=== PATIENT | female | born 1970 | race Caucasian/White ===

== ENCOUNTER 2018-03-18 06:47 | Inpatient (IN) | payer OTHER ==
[2018-03-18] MEDS ORDERED: DEXAMETHASONE 4 MG/ML 5 ML INJ (07:00)
[2018-03-18] MEDS ORDERED: DESFLURANE 15 MIN (07:00)
[2018-03-18] MEDS ORDERED: METOCLOPRAMIDE 10 MG INJ (07:00)
[2018-03-18] MEDS ORDERED: LIDOCAINE 2% (SDV) 5 ML INJ (07:00)
[2018-03-18] MEDS ORDERED: PROPOFOL 200 MG INJ (07:00)
[2018-03-18] MEDS ORDERED: CEFAZOLIN 1 GM INJ (07:00)
[2018-03-18] MEDS ORDERED: MIDAZOLAM 1 MG/ML 2 ML INJ (08:05)
[2018-03-18] MEDS ORDERED: SUCCINYLCHOLINE CHLORIDE 100 MG/5 ML SYG IV (08:05)
[2018-03-18] MEDS ORDERED: ROCURONIUM 50 MG INJ (08:05)
[2018-03-18] MEDS ORDERED: hydrALAzine 20 MG INJ IV (08:30)
[2018-03-18] MEDS ORDERED: LEVALBUTEROL (NEB) 1.25 MG/0.5 ML AMP HHN (08:30)
[2018-03-18] MEDS ORDERED: DIPHENHYDRAMINE 50 MG INJ IV (08:30)
[2018-03-18] MEDS ORDERED: MEPERIDINE 25 MG INJ IV (08:30)
[2018-03-18] MEDS ORDERED: IPRATROPIUM (NEB) 0.5 MG/2.5 ML AMP HHN (08:30)
[2018-03-18] MEDS ORDERED: LABETALOL HCL 20MG INJ IV (08:30)
[2018-03-18] MEDS ORDERED: ONDANSETRON 4 MG INJ IV (08:30)
[2018-03-18] MEDS ORDERED: HYDROmorphONE 1 MG/5 ML IV SYRINGE IV (08:30)
[2018-03-18] MEDS ORDERED: BUPIVACAINE 0.5%/EPI (SDV) 30 ML INJ (08:41)
[2018-03-18] MEDS: BUPIVACAINE 0.5% (SDV) 30 ML INJ (10:10)
[2018-03-18] MEDS: LIDOCAINE 1% (MPF) 30 ML INJ (10:10)
[2018-03-18] MEDS: THROMBIN 5000 UNIT VIAL (10:10)
[2018-03-18] MEDS: POLYMYXIN/BACITRACIN 1L IRRIG (10:10)
[2018-03-18] MEDS: GELATIN SIZE 100 SPONGE (10:10)
[2018-03-18] MEDS ORDERED: HYDROmorphONE 2 MG/ML SYG (14:17)
[2018-03-18] MEDS ORDERED: NALOXONE (0.4 MG/ML) INJ IV (14:30)
[2018-03-18] MEDS: HYDROCODONE/APAP (10/325) TAB PO ×2 (14:30→20:38)
[2018-03-18] MEDS ORDERED: BISACODYL 10 MG SUPP PR (14:30)
[2018-03-18] MEDS: HYDROmorphONE 1 MG/5 ML IV SYRINGE IV ×3 (15:01→16:12)
[2018-03-18] MEDS: FENTAnyl 50 MCG/ML VIAL IV ×3 (15:21→15:50)
[2018-03-18 16:25] LABS: ADD UMIC YES; UR AMORPHOUS CRYSTAL FEW /HPF (NONE SEEN); UR ASCORBIC ACID NEGATIVE (NEGATIVE); UR BILIRUBIN (Dip) NEGATIVE (NEGATIVE); UR BLOOD (Dip) NEGATIVE (NEGATIVE); UR CLARITY CLOUDY (CLEAR); UR COLOR YELLOW (YELLOW); UR GLUCOSE (Dip) NEGATIVE (NEGATIVE); UR KETONES (Dip) NEGATIVE (NEGATIVE); UR LEUKOCYTE ESTERASE (Dip) NEGATIVE Leu/ul (NEGATIVE); UR MUCUS FEW /HPF (NONE SEEN); UR NITRITE (Dip) NEGATIVE (NEGATIVE); UR RBC 0 /HPF (0-5); UR SPECIFIC GRAVITY (Dip) 1.009 (1.003-1.030); UR TOTAL PROTEIN (Dip) NEGATIVE (NEGATIVE); UR UROBILINOGEN (Dip) NEGATIVE (NEGATIVE); UR WBC 0 /HPF (0-5)
[2018-03-18] MEDS: D5W-0.45 NACL + KCL 20 MEQ 1,000 ML IV (17:43)
[2018-03-18] MEDS: traMADol 50 MG TAB PO ×2 (17:43→22:03)
[2018-03-18] MEDS: HYDROmorphONE 0.5 MG/0.5 ML SYG IV ×3 (18:44→22:51)
[2018-03-18] MEDS: CYCLOBENZAPRINE 10 MG TAB PO (19:21)
[2018-03-18] MEDS: CEFAZOLIN 1 GM/50 ML (PMX) 50 ML IVPB (20:03)
[2018-03-18] MEDS: DOCUSATE SODIUM 100 MG CAP PO (22:03)
[2018-03-19] MEDS: ONDANSETRON 4 MG INJ IV ×2 (01:48→07:39)
[2018-03-19] MEDS: HYDROmorphONE 0.5 MG/0.5 ML SYG IV ×5 (01:52→09:58)
[2018-03-19] MEDS: HYDROCODONE/APAP (10/325) TAB PO ×4 (02:50→20:30)
[2018-03-19] MEDS: CEFAZOLIN 1 GM/50 ML (PMX) 50 ML IVPB ×2 (02:53→09:56)
[2018-03-19] MEDS: traMADol 50 MG TAB PO ×6 (04:00→23:36)
[2018-03-19] MEDS: D5W-0.45 NACL + KCL 20 MEQ 1,000 ML IV (04:03)
[2018-03-19] MEDS: PANTOPRAZOLE 40 MG INJ IV (06:48)
[2018-03-19] MEDS: DOCUSATE SODIUM 100 MG CAP PO ×2 (09:56→22:08)
[2018-03-19] MEDS: CYCLOBENZAPRINE 10 MG TAB PO ×4 (10:50→22:08)
[2018-03-19] MEDS: HYDROmorphONE 0.2 MG/ML PCA IV ×2 (11:22→17:19)
[2018-03-19] MEDS: OXYCODONE/ACETAMINOPHEN (5/325) TAB PO (18:40)
[2018-03-19] MEDS ORDERED: OXYCODONE/ACETAMINOPHEN (5/325) TAB PO (21:00)
[2018-03-19] MEDS: AMITRIPTYLINE 50 MG TAB PO (22:08)
[2018-03-20] MEDS: HYDROmorphONE 0.2 MG/ML PCA IV (01:39)
[2018-03-20] MEDS: HYDROCODONE/APAP (10/325) TAB PO ×3 (02:30→14:21)
[2018-03-20] MEDS: traMADol 50 MG TAB PO ×5 (03:07→18:34)
[2018-03-20] MEDS: PANTOPRAZOLE 40 MG INJ IV (06:48)
[2018-03-20] MEDS: DOCUSATE SODIUM 100 MG CAP PO (08:17)
[2018-03-20] MEDS: LOSARTAN 50 MG TAB PO (08:18)
[2018-03-20] MEDS: CYCLOBENZAPRINE 10 MG TAB PO ×2 (08:19→13:22)
[2018-03-20] MEDS: CALCIUM/VITAMIN D (500/200) TAB PO (08:19)
[2018-03-20] MEDS: HYDROCHLOROTHIAZIDE 25 MG TAB PO (08:19)
== END 2018-03-20 21:00 | disposition home or self-care (01) | DRG 455 ==
LOC: REC 06:47 → MS1 17:14
PROC: 0SG30AJ Fusion of Lumbosacral Joint with Interbody Fusion Device, Posterior Approach, Anterior Column, Open Approach (ICD-10-PCS; principal; 2018-03-18 09:00)
PROC: 0SG3071 Fusion of Lumbosacral Joint with Autologous Tissue Substitute, Posterior Approach, Posterior Column, Open Approach (ICD-10-PCS; 2018-03-18 09:00)
PROC: 0SB40ZZ Excision of Lumbosacral Disc, Open Approach (ICD-10-PCS; 2018-03-18 09:00)
PROC: 07DS3ZZ Extraction of Vertebral Bone Marrow, Percutaneous Approach (ICD-10-PCS; 2018-03-18 09:00)
PROC: 4A11X4G Monitoring of Peripheral Nervous Electrical Activity, Intraoperative, External Approach (ICD-10-PCS; 2018-03-18 09:00)
DX: M43.17 Spondylolisthesis, lumbosacral region (principal); M51.27 Other intervertebral disc displacement, lumbosacral region; M48.07 Spinal stenosis, lumbosacral region; I10 Essential (primary) hypertension
CPT/HCPCS: 72114; 81001; 87086; 97116; 97162; 97530

== ENCOUNTER 2018-04-03 05:48 | Day surgery (SDC) | payer OTHER ==
[2018-04-03] MEDS ORDERED: OXYCODONE/ACETAMINOPHEN (5/325) TAB PO (07:00)
[2018-04-03] MEDS ORDERED: MEPERIDINE 25 MG INJ IV (07:00)
[2018-04-03] MEDS ORDERED: FENTAnyl 50 MCG/ML VIAL IV ×2 (07:00)
[2018-04-03] MEDS ORDERED: DIPHENHYDRAMINE 50 MG INJ IV (07:00)
[2018-04-03] MEDS ORDERED: ALBUTEROL 0.083% (NEB) 2.5 MG/3 ML AMP HHN (07:00)
[2018-04-03] MEDS ORDERED: morphine (1 MG/ML) 10ML SYRINGE IV (07:00)
[2018-04-03] MEDS ORDERED: HYDROmorphONE 1 MG/5 ML IV SYRINGE IV (07:00)
[2018-04-03] MEDS ORDERED: LABETALOL HCL 20MG INJ IV (07:00)
[2018-04-03] MEDS ORDERED: LIDOCAINE 2% (MDV) 20 ML INJ (07:08)
[2018-04-03] MEDS ORDERED: DEXAMETHASONE 4 MG/ML 1 ML INJ (07:08)
[2018-04-03] MEDS ORDERED: POLYMYXIN/BACITRACIN 1L IRRIG (07:10)
[2018-04-03 07:20] LABS: ADD MAN DIFF? NO
[2018-04-03] MEDS ORDERED: CEFAZOLIN 1 GM INJ (07:23)
[2018-04-03] MEDS ORDERED: MIDAZOLAM 1 MG/ML 2 ML INJ (07:23)
[2018-04-03] MEDS ORDERED: PROPOFOL 40 ML (07:23)
[2018-04-03] MEDS ORDERED: LIDOCAINE 2% (SDV) 5 ML INJ (07:23)
[2018-04-03] MEDS ORDERED: ONDANSETRON 4 MG INJ (07:23)
[2018-04-03] MEDS ORDERED: FENTAnyl 50 MCG/ML VIAL (07:23)
[2018-04-03 07:24] LABS: INR 1.01; PROTIME 13.4 Sec (11.9-14.9)
[2018-04-03] MEDS ORDERED: FAMOTIDINE 20 MG INJ (07:24)
[2018-04-03 07:25] LABS: BASOPHILS % 0.7 % (0.0-2.0); EOSINOPHILS # 0.3 10^3/ul (0.0-0.5); EOSINOPHILS % 5.4 % (0.0-7.0); HEMATOCRIT 33.9 % (37.0-47.0); HEMOGLOBIN 11.1 g/dl (12.0-16.0); LYMPHOCYTES # 1.5 10^3/ul (0.8-2.9); LYMPHOCYTES % 27.5 % (15.0-51.0); MEAN CORPUSCULAR HEMOGLOBIN 26.9 pg (29.0-33.0); MEAN CORPUSCULAR HGB CONC 32.7 g/dl (32.0-37.0); MEAN CORPUSCULAR VOLUME 82.1 fl (82.0-101.0); MEAN PLATELET VOLUME 8.3 fl (7.4-10.4); MONOCYTE # 0.3 10^3/ul (0.3-0.9); MONOCYTES % 4.7 % (0.0-11.0); NEUTROPHIL # 3.4 10^3/ul (1.6-7.5); NEUTROPHILS % 61.2 % (39.0-77.0); PARTIAL THROMBOPLASTIN TIME 33.9 Sec (23.0-35.0); PLATELET COUNT 468 10^3/UL (140-415); RED BLOOD COUNT 4.13 10^6/ul (4.20-5.40); RED CELL DISTRIBUTION WIDTH 13.7 % (11.5-14.5)
[2018-04-03 07:25] LABS: WHITE BLOOD COUNT 5.6 10^3/ul (4.8-10.8)
[2018-04-03] MEDS ORDERED: LACTATED RINGER'S 1,000 ML IV (07:30)
[2018-04-03 07:31] LABS: ALANINE AMINOTRANSFERASE 62 IU/L (13-69); ALBUMIN 4.2 g/dl (3.3-4.9); ALBUMIN/GLOBULIN RATIO 1.23; ALKALINE PHOSPHATASE 206 IU/L (42-121); ANION GAP 11 (5-13); ASPARTATE AMINO TRANSFERASE 38 IU/L (15-46); BLOOD UREA NITROGEN 20 mg/dl (7-20); CARBON DIOXIDE 27 mmol/L (21-31); CHLORIDE 105 mmol/L (97-110); CREATININE 0.66 mg/dl (0.44-1.00); Estimated GFR > 60 mL/min (>60); GLUCOSE 90 mg/dl (70-220); POTASSIUM 4.2 mmol/L (3.5-5.1); SODIUM 143 mmol/L (135-144); TOTAL PROTEIN 7.6 g/dl (6.1-8.1)
[2018-04-03 07:32] LABS: CALCIUM 10.5 mg/dl (8.4-10.2)
[2018-04-03] MEDS ORDERED: METOCLOPRAMIDE 10 MG INJ (08:21)
[2018-04-03] MEDS ORDERED: KETOROLAC 30 MG INJ (08:21)
[2018-04-03] MEDS: BUPIVACAINE 0.5% (SDV) 30 ML INJ (08:50)
[2018-04-03] MEDS: ONDANSETRON 4 MG INJ IV (09:01)
[2018-04-03] MEDS: HYDROmorphONE 1 MG/5 ML IV SYRINGE IV ×2 (09:02→09:12)
[2018-04-03] MEDS: OXYCODONE/ACETAMINOPHEN (5/325) TAB PO (09:17)
[2018-04-03] MEDS ORDERED: HYDROCODONE/APAP (5/325) TAB PO (09:30)
== END 2018-04-03 10:14 | disposition home or self-care (01) ==
LOC: SDS 05:48
DX: M20.12 Hallux valgus (acquired), left foot (principal); M21.612 Bunion of left foot; I10 Essential (primary) hypertension
CPT/HCPCS: 28299; 80053; 85025; 85610; 85730